=== PATIENT | male | born 1965 | race Caucasian/White ===

== ENCOUNTER 2022-08-12 02:16 | Outpatient (RCR) | payer OTHER, SELFPAY ==
[2022-08-12] MEDS: Normal Saline Flush 10 ML SYR IVP (08:29)
[2022-08-12 08:59] LABS: Abs Immature Grans 0.02 10^3/uL (0.0-0.06); Absolute Basophil Count 0.02 10^3/uL (0.0-0.2); Absolute Eosinophil Count 0.36 10^3/uL (0.0-0.7); Absolute Lymphocyte Count 1.01 10^3/uL (1.2-3.4); Absolute Monocyte Count 0.85 10^3/uL (0.1-0.8); Absolute Neutrophil Count 3.34 10^3/uL (1.2-6.7); Basophils % 0.4; Eosinophils % 6.4; HCT 25.4 % (40.0-50.0); HGB 8.3 g/dL (13.5-17.5); Immature Grans % 0.4; MCH 28.7 pg (27.0-33.0); MCHC 32.7 % (32.0-36.0); MCV 88 fL (80-95); MPV 9.9 fL (8.0-11.0); Monocytes % 15.2; Neutrophils % 59.6; Platelet Count 171 10^3/uL (130-400); RBC 2.89 10^6/uL (4.36-5.78); RDW 17.4 % (11.8-14.1); RDW-SD 55.7 fL
[2022-08-12 09:31] LABS: ALT 31 U/L (16-63); AST 56 U/L (15-37); Albumin 3.2 g/dL (3.4-5.0); Alkaline Phosphatase 421 U/L (46-116); Anion Gap 8.6 mmol/L (3-11); BUN 9 mg/dL (7-18); CO2 25.4 mmol/L (21.0-32.0); CREATININE 0.8 mg/dL (0.70-1.30); Calcium 8.4 mg/dL (8.5-10.1); Chloride 104 mmol/L (98-107); Estimated GFR 103.22 (mL/min/1.73m2); Glucose 103 mg/dL (74-106); Potassium 3.7 mmol/L (3.5-5.1); Sodium 138 mmol/L (136-145); Total Protein 7.2 g/dL (6.4-8.2)
[2022-08-14 10:33] LABS: CA 19-9 42 U/mL (<35)
== END 2022-08-15 23:59 | disposition home or self-care (01) ==
LOC: INF 02:16
PROVIDERS: PCP Nurse Practitioner Acute Care; Visit Provider Internal Medicine Hematology & Oncology
DX: C25.7 Malignant neoplasm of other parts of pancreas (principal); Z45.2 Encounter for adjustment and management of vascular access device
CPT/HCPCS: 36591; 80053; 85025; 86301

== ENCOUNTER 2022-09-11 00:53 | Outpatient (RCR) | payer OTHER, SELFPAY ==
[2022-08-26] MEDS: Normal Saline Flush 10 ML SYR IVP (08:56)
[2022-08-26 09:02] LABS: Abs Immature Grans 0.01 10^3/uL (0.0-0.06); Absolute Basophil Count 0.02 10^3/uL (0.0-0.2); Absolute Eosinophil Count 0.34 10^3/uL (0.0-0.7); Absolute Lymphocyte Count 0.86 10^3/uL (1.2-3.4); Absolute Monocyte Count 0.58 10^3/uL (0.1-0.8); Absolute Neutrophil Count 1.52 10^3/uL (1.2-6.7); Basophils % 0.6; Eosinophils % 10.2; HCT 24.5 % (40.0-50.0); Immature Grans % 0.3; Lymphocytes % 25.8; MCH 27.4 pg (27.0-33.0); MCHC 32.7 % (32.0-36.0); MCV 84 fL (80-95); MPV 9.7 fL (8.0-11.0); Monocytes % 17.4; Neutrophils % 45.7; Platelet Count 150 10^3/uL (130-400); RBC 2.92 10^6/uL (4.36-5.78); RDW 18.2 % (11.8-14.1); RDW-SD 55.6 fL; WBC 3.33 10^3/uL (4.4-10.8)
[2022-08-26 09:16] LABS: ALT 35 U/L (16-63); AST 42 U/L (15-37); Albumin 3.2 g/dL (3.4-5.0); Alkaline Phosphatase 355 U/L (46-116); Anion Gap 8.8 mmol/L (3-11); BUN 7 mg/dL (7-18); Bilirubin, Total 0.6 mg/dL (0.2-1.0); CO2 26.2 mmol/L (21.0-32.0); CREATININE 0.9 mg/dL (0.70-1.30); Calcium 6.8 mg/dL (8.5-10.1); Chloride 106 mmol/L (98-107); Estimated GFR 99.62 (mL/min/1.73m2); Glucose 85 mg/dL (74-106); Potassium 3.3 mmol/L (3.5-5.1); Sodium 141 mmol/L (136-145); Total Protein 6.9 g/dL (6.4-8.2)
[2022-08-26 09:34] LABS: Diff Comment Diff Reviewed; RBC Morphology Normal
[2022-08-26 11:35] LABS: Magnesium 0.6 mg/dL (1.8-2.4)
[2022-08-26 11:53] LABS: Vitamin D 25 Total 24.1 ng/mL (30-100)
[2022-08-28 11:27] LABS: CA 19-9 43 U/mL (<35)
[2022-08-28 14:26] LABS: ALT 42 U/L (16-63); AST 49 U/L (15-37); Albumin 3.3 g/dL (3.4-5.0); Alkaline Phosphatase 344 U/L (46-116); Anion Gap 8.6 mmol/L (3-11); BUN 13 mg/dL (7-18); Bilirubin, Total 0.6 mg/dL (0.2-1.0); CO2 24.4 mmol/L (21.0-32.0); CREATININE 0.9 mg/dL (0.70-1.30); Calcium 7.8 mg/dL (8.5-10.1); Chloride 103 mmol/L (98-107); Estimated GFR 99.62 (mL/min/1.73m2); Glucose 101 mg/dL (74-106); Sodium 136 mmol/L (136-145); Total Protein 7.2 g/dL (6.4-8.2)
[2022-08-28 15:52] LABS: Magnesium 1.5 mg/dL (1.8-2.4)
[2022-09-11] MEDS: Normal Saline Flush 10 ML SYR IVP (08:26)
[2022-09-11 08:46] LABS: Abs Immature Grans 0.01 10^3/uL (0.0-0.06); HCT 25.9 % (40.0-50.0); HGB 8.3 g/dL (13.5-17.5); MCH 26.6 pg (27.0-33.0); MCV 83 fL (80-95); MPV 10.3 fL (8.0-11.0); Platelet Count 153 10^3/uL (130-400); RBC 3.12 10^6/uL (4.36-5.78); RDW 18.7 % (11.8-14.1); WBC 2.61 10^3/uL (4.4-10.8)
[2022-09-11 09:02] LABS: ALT 72 U/L (16-63); AST 145 U/L (15-37); Albumin 3.2 g/dL (3.4-5.0); Alkaline Phosphatase 593 U/L (46-116); Anion Gap 11.7 mmol/L (3-11); BUN 8 mg/dL (7-18); Bilirubin, Total 0.4 mg/dL (0.2-1.0); CO2 23.3 mmol/L (21.0-32.0); CREATININE 0.9 mg/dL (0.70-1.30); Calcium 7.6 mg/dL (8.5-10.1); Chloride 104 mmol/L (98-107); Estimated GFR 99.62 (mL/min/1.73m2); Glucose 153 mg/dL (74-106); Potassium 3.3 mmol/L (3.5-5.1); Sodium 139 mmol/L (136-145)
[2022-09-11 09:22] LABS: Absolute Basophil Count 0.03 10^3/uL (0.0-0.2); Absolute Eosinophil Count 0.29 10^3/uL (0.0-0.7); Absolute Lymphocyte Count 1.25 10^3/uL (1.2-3.4); Absolute Monocyte Count 0.42 10^3/uL (0.1-0.8); Absolute Neutrophil Count 0.63 10^3/uL (1.2-6.7)
[2022-09-11 09:23] LABS: Anisocytosis 1+; Diff Comment Manual Differential; Hypochromasia 1+
[2022-09-11 10:43] LABS: Magnesium 0.5 mg/dL (1.8-2.4)
[2022-09-14 10:50] LABS: CA 19-9 48 U/mL (<35)
== END 2022-09-15 23:59 | disposition home or self-care (01) ==
LOC: INF 00:53
PROVIDERS: PCP Nurse Practitioner Acute Care; Visit Provider Internal Medicine Hematology & Oncology
DX: C25.7 Malignant neoplasm of other parts of pancreas (principal); Z45.2 Encounter for adjustment and management of vascular access device
CPT/HCPCS: 36591; 80053; 82306; 83735; 85025; 86301

== ENCOUNTER 2022-10-09 01:18 | Outpatient (RCR) | payer OTHER, SELFPAY ==
[2022-09-21] MEDS: Normal Saline Flush 10 ML SYR IVP (09:33)
[2022-09-21 09:43] LABS: Absolute Basophil Count 0.02 10^3/uL (0.0-0.2); Absolute Eosinophil Count 0.35 10^3/uL (0.0-0.7); Absolute Lymphocyte Count 1.67 10^3/uL (1.2-3.4); Absolute Monocyte Count 0.64 10^3/uL (0.1-0.8); Absolute Neutrophil Count 2.24 10^3/uL (1.2-6.7); Basophils % 0.4; HCT 27.6 % (40.0-50.0); HGB 8.9 g/dL (13.5-17.5); Lymphocytes % 33.3; MCH 25.6 pg (27.0-33.0); MCHC 32.2 % (32.0-36.0); MCV 79 fL (80-95); MPV 9.7 fL (8.0-11.0); Monocytes % 12.7; Neutrophils % 44.6; Platelet Count 241 10^3/uL (130-400); RBC 3.48 10^6/uL (4.36-5.78); RDW 19.4 % (11.8-14.1); RDW-SD 55.1 fL; WBC 5.02 10^3/uL (4.4-10.8)
[2022-09-21 10:23] LABS: ALT 47 U/L (16-63); AST 70 U/L (15-37); Albumin 3.5 g/dL (3.4-5.0); Alkaline Phosphatase 590 U/L (46-116); Anion Gap 13.7 mmol/L (3-11); BUN 6 mg/dL (7-18); Bilirubin, Total 0.4 mg/dL (0.2-1.0); CO2 21.3 mmol/L (21.0-32.0); CREATININE 0.9 mg/dL (0.70-1.30); Chloride 106 mmol/L (98-107); Estimated GFR 99.62 (mL/min/1.73m2); Glucose 130 mg/dL (74-106); Potassium 3.2 mmol/L (3.5-5.1); Sodium 141 mmol/L (136-145); Total Protein 7.4 g/dL (6.4-8.2)
[2022-09-21 10:46] LABS: Magnesium 0.9 mg/dL (1.8-2.4)
[2022-09-23 09:41] LABS: CA 19-9 46 U/mL (<35)
[2022-09-23 13:39] LABS: ALT 61 U/L (16-63); AST 73 U/L (15-37); Albumin 3.5 g/dL (3.4-5.0); Alkaline Phosphatase 623 U/L (46-116); Anion Gap 8.9 mmol/L (3-11); BUN 16 mg/dL (7-18); Bilirubin, Total 0.4 mg/dL (0.2-1.0); CO2 23.1 mmol/L (21.0-32.0); CREATININE 0.9 mg/dL (0.70-1.30); Calcium 8.5 mg/dL (8.5-10.1); Chloride 104 mmol/L (98-107); Estimated GFR 99.62 (mL/min/1.73m2); Glucose 103 mg/dL (74-106); Magnesium 1.9 mg/dL (1.8-2.4); Sodium 136 mmol/L (136-145); Total Protein 7.4 g/dL (6.4-8.2)
== END 2022-10-13 23:59 | disposition home or self-care (01) ==
LOC: INF 01:18
PROVIDERS: PCP Nurse Practitioner Acute Care; Visit Provider Internal Medicine Hematology & Oncology
DX: Z45.2 Encounter for adjustment and management of vascular access device (principal); C25.7 Malignant neoplasm of other parts of pancreas
CPT/HCPCS: 36415; 36591; 80053; 83735; 85025; 86301

== ENCOUNTER 2022-10-23 11:54 | Emergency (ER) | payer OTHER, SELFPAY ==
[2022-10-23] VITALS (63 sets, daily range): BP systolic 113–182; BP diastolic 55–104; PULSE 75–107; RESP 12–32; TEMP 38.4; O2SAT 90–100
[2022-10-23] MEDS: PIPERACILLIN/TAZO 4.5 GM in Normal Saline 100 ML IVPB ×2 (12:18→18:17)
[2022-10-23 12:43] LABS: Lactate 1.2 mmol/L (0.6-1.4)
[2022-10-23] MEDS: HYDROmorphone 2 MG/ML SYR 0.5 MG IVP (12:58)
[2022-10-23 12:59] LABS: Abs Immature Grans 0.07 10^3/uL (0.0-0.06); Absolute Basophil Count 0.03 10^3/uL (0.0-0.2); Absolute Lymphocyte Count 0.38 10^3/uL (1.2-3.4); Absolute Monocyte Count 0.51 10^3/uL (0.1-0.8); Absolute Neutrophil Count 9.12 10^3/uL (1.2-6.7); Basophils % 0.3; HCT 25.7 % (40.0-50.0); HGB 8.3 g/dL (13.5-17.5); Immature Grans % 0.7; Lymphocytes % 3.7; MCH 25.4 pg (27.0-33.0); MCHC 32.3 % (32.0-36.0); MCV 79 fL (80-95); MPV 10.2 fL (8.0-11.0); Neutrophils % 89.3; RBC 3.27 10^6/uL (4.36-5.78); RDW 25.2 % (11.8-14.1); RDW-SD 70.9 fL; WBC 10.21 10^3/uL (4.4-10.8)
[2022-10-23 13:09] LABS: ALT 167 U/L (16-63); AST 245 U/L (15-37); Albumin 3.2 g/dL (3.4-5.0); Anion Gap 12.5 mmol/L (3-11); BUN 10 mg/dL (7-18); Bilirubin, Total 3.8 mg/dL (0.2-1.0); CO2 20.5 mmol/L (21.0-32.0); Calcium 8.7 mg/dL (8.5-10.1); Chloride 105 mmol/L (98-107); Estimated GFR 87.78 (mL/min/1.73m2); Glucose 123 mg/dL (74-106); Potassium 3.9 mmol/L (3.5-5.1); Sodium 138 mmol/L (136-145)
[2022-10-23 13:10] LABS: Diff Comment Diff Reviewed; Platelet Count 204 10^3/uL (130-400)
[2022-10-23 13:11] LABS: Anisocytosis 3+; Hypochromasia 2+; Poikilocytes 2+
[2022-10-23 13:14] LABS: Alkaline Phosphatase 1046 U/L (46-116)
[2022-10-23 13:34] LABS: Source Nasal/Nares
[2022-10-23 13:48] LABS: Lipase 58 U/L (16-77)
[2022-10-23 14:08] LABS: COVID-19 PCR Negative (Negative)
--- NOTE | 2022-10-23 14:18 | ED.GENADUL_ITS ---
Discharge Plan Disposition Patient Disposition: Transfer-Acute Inpatient Care Specific Acute Inpt Facility: [facility] Condition: Stable Discharge Details Clinical Impression: Acute cholangitis, Hypomagnesemia, Anemia Primary Care Provider: JENNIFER DAVIES ED Provider: Marlon Shukla [place] Meds and New Rx's Prescriptions: No Action acetaminophen 500 mg Tablet 1,000 mg PO DAILY amoxicillin-pot clavulanate 875-125 mg tablet 1 tab PO BID Patient Comments: TAKE 1 TABLET BY MOUTH TWICE DAILY ascorbic acid (vitamin C) [Vitamin C] 500 mg Tablet 500 mg PO DAILY atorvastatin 80 mg Tablet 80 mg PO DAILY calcium acetate(phosphat bind) 667 mg Tablet 667 mg PO DIRECTED calcium carbonate-vitamin D3 600 mg-5 mcg (200 unit) Tablet 2 tab PO DAILY Rx Instructions: 600mg-10mcg ciprofloxacin HCl 500 mg tablet 500 mg PO BID Patient Comments: TAKE 1 TABLET BY MOUTH TWICE DAILY FOR 10 DAYS clobetasol 0.05 % Cream 1 applic TOPICAL BID cyanocobalamin (vitamin B-12) 500 mcg Tablet 500 mcg PO DAILY cyclobenzaprine 10 mg Tablet 10 mg PO DIRECTED diphenhydramine HCl 50 mg Tablet 50 mg PO HS PRN echinacea [Echinacea Herb] 380 mg Capsule 380 mg PO DAILY Ensure Active Clear Liquid 237 ml PO DAILY Rx Instructions: chocolate plus - lactose free lidocaine HCl [Xylocaine] 4 % (40 mg/mL) Solution 15 ml topical Q4H PRN Zenpep 25,000-79,000- 105,000 unit Capsule,Delayed Release(Dr/Ec) 1 - 2 cap PO TID Creon 24,000-76,000 -120,000 unit Capsule,Delayed Release(Dr/Ec) 1 - 2 cap PO TID losartan 100 mg Tablet 100 mg PO DAILY magnesium oxide [MagOx] 400 mg (241.3 mg magnesium) Tablet 400 mg PO DAILY melatonin 5 mg Tablet 20 mg PO HS metoprolol tartrate 25 mg Tablet 12.5 mg PO DIRECTED pantoprazole 20 mg Tablet,Delayed Release (Dr/Ec) 20 mg PO BID potassium chloride 20 mEq tablet,ER particles/crystals 20 meq PO DAILY Patient Comments: TAKE 1 TABLET BY MOUTH ONCE DAILY spironolactone 50 mg Tablet 50 mg PO DAILY thiamine HCl (vitamin B1) 100 mg Tablet 100 mg PO DAILY Medical Decision Making 1424--57-year-old male with history of pancreatic cancer, on chemotherapy, sent from cancer center with fever and chills. Patient has mid abdominal tenderness. Labs reviewed and no leukocytosis. Patient is anemic but seems to be at baseline. Mild anion gap acidosis. Magnesium is low at 1.3. Transaminitis noted. Total bilirubin 3.8. Patient is febrile and tachycardic. Concern for potential acute intra-abdominal surgical process and consider acute cholangitis. Plan to obtain CT of the abdomen pelvis. I will initiate broad-spectrum antibiotics with Zofran 4.5 g IV. Blood cultures were sent. Patient requesting analgesic. Dilaudid 0.5 mg IV ordered. 16:00 --CT the abdomen pelvis was interpreted by radiology:1. There are no priors for comparison. 2. Biliary stent with intra and extrahepatic biliary ductal dilatation. Pancreatic head abnormality suspicious for pancreatic carcinoma. 3. Colonic diverticulosis without evidence of a acute diverticulitis. 4. There is a question of a striated appearance of the kidneys bilaterally which may represent pyelonephritis. 5. Thickening of the wall of the stomach. This is nonspecific but a infectious or inflammatory gastritis cannot be excluded. I called [facility] [place] to follow-up on plan that has been discussed with Dr. Cuevas regarding potential need for ERCP. Awaiting callback. I spoke with Dr. Cuevas directly and he will be contacted and transfer center. 17:30 --patient receiving second dose of Zosyn as well as magnesium 1 g IV. Additional Dilaudid 1 mg ordered. Lab Data Lab results reviewed: Yes I reviewed the patient's lab results. Labs: 10/23/22 12:41 Blood Blood Culture - Pending 10/23/22 12:30 Blood Blood Culture - Pending Laboratory Tests Range/Units 10/23/22 10/23/22 10/23/22 12:28 12:28 12:28 WBC (4.4-10.8) 10^3/uL 10.21 RBC (4.36-5.78) 10^6/uL 3.27 L Hgb (13.5-17.5) g/dL 8.3 L Hct (40.0-50.0) % 25.7 L MCV (80-95) fL 79 L MCH (27.0-33.0) pg 25.4 L MCHC (32.0-36.0) % 32.3 RDW (11.8-14.1) % 25.2 H Plt Count (130-400) 10^3/uL 204 MPV (8.0-11.0) fL 10.2 Immature Gran % 0.7 Neutrophils % 89.3 Lymphocytes % 3.7 Monocytes % 5.0 Eosinophils % 1.0 Basophils % 0.3 Nucleated RBC % (0.0-0.3) % 0.0 Absolute Neutrophils (1.2-6.7) 10^3/uL 9.12 H Absolute Lymphocytes (1.2-3.4) 10^3/uL 0.38 L Absolute Monocytes (0.1-0.8) 10^3/uL 0.51 Absolute Eosinophils (0.0-0.7) 10^3/uL 0.10 Absolute Basophils (0.0-0.2) 10^3/uL 0.03 RBC Morphology See Below Hypochromasia 2+ Poikilocytosis 2+ Anisocytosis 3+ VBG Lactate (0.6-1.4) mmol/L 1.2 Sodium (136-145) mmol/L 138 Potassium (3.5-5.1) mmol/L 3.9 Chloride (98-107) mmol/L 105 Carbon Dioxide (21.0-32.0) mmol/L 20.5 L Anion Gap (3-11) mmol/L 12.5 H BUN (7-18) mg/dL 10 Creatinine (0.70-1.30) mg/dL 1.0 Est GFR (CKD-EPI 2020) (mL/min/1.73m2) 87.78 Glucose (74-106) mg/dL 123 H Calcium (8.5-10.1) mg/dL 8.7 Total Bilirubin (0.2-1.0) mg/dL 3.8 H AST (15-37) U/L 245 H ALT (16-63) U/L 167 H Alkaline Phosphatase (46-116) U/L 1046 H Total Protein (6.4-8.2) g/dL 7.0 Albumin (3.4-5.0) g/dL 3.2 L Lipase (16-77) U/L COVID-19 Source SARS-CoV-2 (PCR) (Negative) Range/Units 10/23/22 10/23/22 12:45 13:28 WBC (4.4-10.8) 10^3/uL RBC (4.36-5.78) 10^6/uL Hgb (13.5-17.5) g/dL Hct (40.0-50.0) % MCV (80-95) fL MCH (27.0-33.0) pg MCHC (32.0-36.0) % RDW (11.8-14.1) % Plt Count (130-400) 10^3/uL MPV (8.0-11.0) fL Immature Gran % Neutrophils % Lymphocytes % Monocytes % Eosinophils % Basophils % Nucleated RBC % (0.0-0.3) % Absolute Neutrophils (1.2-6.7) 10^3/uL Absolute Lymphocytes (1.2-3.4) 10^3/uL Absolute Monocytes (0.1-0.8) 10^3/uL Absolute Eosinophils (0.0-0.7) 10^3/uL Absolute Basophils (0.0-0.2) 10^3/uL RBC Morphology Hypochromasia Poikilocytosis Anisocytosis VBG Lactate (0.6-1.4) mmol/L Sodium (136-145) mmol/L Potassium (3.5-5.1) mmol/L Chloride (98-107) mmol/L Carbon Dioxide (21.0-32.0) mmol/L Anion Gap (3-11) mmol/L BUN (7-18) mg/dL Creatinine (0.70-1.30) mg/dL Est GFR (CKD-EPI 2020) (mL/min/1.73m2) Glucose (74-106) mg/dL Calcium (8.5-10.1) mg/dL Total Bilirubin (0.2-1.0) mg/dL AST (15-37) U/L ALT (16-63) U/L Alkaline Phosphatase (46-116) U/L Total Protein (6.4-8.2) g/dL Albumin (3.4-5.0) g/dL Lipase (16-77) U/L 58 COVID-19 Source Nasal/Nares SARS-CoV-2 (PCR) (Negative) Negative HPI General Mode of arrival: EMS . Date/Time Provider Initiated Documentation: 10/23/22 11:57 . Limitations to Documentation: no limitations . Information obtained by: EMS . HPI Narrative: 57-year-old male with history of pancreatic cancer, sent from the cancer center with new onset fever chills, rigor and in clinic today, concern for potential cholangitis or other severe infection. Patient notes he was feeling okay this morning and then developed nausea, he had some chest discomfort that radiated to his back which resolved. While he was [facility] for [facility] and receiving IV magnesium for treatment of hypomagnesemia, he started to have shaking chills. He continues to have diffuse achiness and abdominal discomfort. Patient has had increasing bilirubin recently and there was plan for ERCP to be performed at [facility]. Related Data Home Medications Medication Instructions Recorded Confirmed acetaminophen 500 mg tablet 1,000 mg PO DAILY 10/23/22 10/23/22 amoxicillin 875 mg-potassium 1 tab PO BID 10/23/22 10/23/22 clavulanate 125 mg tablet ascorbic acid (vitamin C) 500 mg 500 mg PO DAILY 10/23/22 10/23/22 tablet (Vitamin C) atorvastatin 80 mg tablet 80 mg PO DAILY 10/23/22 10/23/22 calcium acetate(phosphat bind) 667 667 mg PO DIRECTED 10/23/22 10/23/22 mg tablet calcium carbonate 600 mg-vitamin 2 tab PO DAILY 10/23/22 10/23/22 D3 5 mcg (200 unit) tablet ciprofloxacin HCl 500 mg tablet 500 mg PO BID 10/23/22 10/23/22 clobetasol 0.05 % topical cream 1 applic topical BID 10/23/22 10/23/22 cyanocobalamin (vitamin B-12) 500 500 mcg PO DAILY 10/23/22 10/23/22 mcg tablet cyclobenzaprine 10 mg tablet 10 mg PO DIRECTED 10/23/22 10/23/22 diphenhydramine HCl 50 mg tablet 50 mg PO HS PRN 10/23/22 10/23/22 echinacea 380 mg capsule 380 mg PO DAILY 10/23/22 10/23/22 food supplemt, lactose-reduced 237 ml PO DAILY 10/23/22 10/23/22 lidocaine HCl 4 % (40 mg/mL) 15 ml topical Q4H PRN 10/23/22 10/23/22 mucosal solution [id number] 1 - 2 cap PO TID 10/23/22 10/23/22 24,000-76,000-120,000 unit capsule,delayed rel (Creon) [id number] 1 - 2 cap PO TID 10/23/22 10/23/22 25,000-79,000-105,000 unit capsule,delayed rel (Zenpep) losartan 100 mg tablet 100 mg PO DAILY 10/23/22 10/23/22 magnesium oxide 400 mg (241.3 mg 400 mg PO DAILY 10/23/22 10/23/22 magnesium) tablet (MagOx) melatonin 5 mg tablet 20 mg PO HS 10/23/22 10/23/22 metoprolol tartrate 25 mg tablet 12.5 mg PO DIRECTED 10/23/22 10/23/22 pantoprazole 20 mg tablet,delayed 20 mg PO BID 10/23/22 10/23/22 release potassium chloride 20 mEq 20 meq PO DAILY 10/23/22 10/23/22 tablet,extended release(part/cryst) spironolactone 50 mg tablet 50 mg PO DAILY 10/23/22 10/23/22 thiamine HCl (vitamin B1) 100 mg 100 mg PO DAILY 10/23/22 10/23/22 tablet Allergies Allergy/AdvReac Type Severity Reaction Status Date / Time levetiracetam AdvReac Intermediate rash/hives Unverified 10/23/22 14:02 General Stated Complaint: Fever VIVIENNE: 2 Review of Systems All systems reviewed & are unremarkable except as noted in HPI and below Constitutional Constitutional: Reports body ache(s), Reports chills and Reports fever(s) Gastrointestinal Gastrointestinal: Reports abdominal pain PFSH All Active Problems (Updated 10/23/22 @ 17:34 by Marlon Shukla MD) Acute cholangitis (Acute) Hypomagnesemia (Acute) Anemia (Chronic) Pancreatic cancer (Acute) Social History Smoking risk assessment performed?: No Alcohol Intake: former Drug use: Never Substance use type: does not use Do you feel safe at home: Yes Do you feel safe in your relationship?: Yes Exam Const General: cooperative HENMT Mouth: moist mucous membranes Eyes Conjunctivae: normal conjunctivae Sclera: normal sclerae Neck Neck: trachea midline and supple Resp Auscultation: clear to auscultation bilaterally, no rales, no rhonchi and no wheezes Cardio Rate: regular rate and not tachycardic Rhythm: regular rhythm GI Palpation: soft, not firm, no guarding, no masses, not rigid and tender (mid abd) Auscultation: normal bowel sounds Skin General skin exam: jaundice Neuro General: patient alert, patient awake and tone normal Extrem General: no edema Psych Appearance: grossly normal Mental Status: mental status grossly normal Course Vital Signs Vital signs: Vital Signs Temperature 38.4 C H 10/23/22 11:55 Pulse 96 H 10/23/22 11:55 Respiratory Rate 21 10/23/22 11:55 Blood Pressure 182/75 H 10/23/22 11:55 Pulse Oximetry 99 10/23/22 11:55 Temperature 38.4 C H 10/23/22 11:55 Temperature Source Oral 10/23/22 11:55 Pulse 96 H 10/23/22 11:55 Respiratory Rate 21 10/23/22 11:55 Blood Pressure 182/75 H 10/23/22 11:55 Pulse Oximetry 99 10/23/22 11:55 Oxygen Delivery Method Room Air 10/23/22 11:55 Oxygen Flow Rate 0 10/23/22 11:55 Pain Level 7 10/23/22 11:55 Lab/Test Results Lab/Test Results: 10/23/22 12:41 Blood Blood Culture - Pending 10/23/22 12:30 Blood Blood Culture - Pending Laboratory Tests Range/Units 10/23/22 10/23/22 10/23/22 12:28 12:28 12:28 WBC (4.4-10.8) 10^3/uL 10.21 RBC (4.36-5.78) 10^6/uL 3.27 L Hgb (13.5-17.5) g/dL 8.3 L Hct (40.0-50.0) % 25.7 L MCV (80-95) fL 79 L MCH (27.0-33.0) pg 25.4 L MCHC (32.0-36.0) % 32.3 RDW (11.8-14.1) % 25.2 H Plt Count (130-400) 10^3/uL 204 MPV (8.0-11.0) fL 10.2 Immature Gran % 0.7 Neutrophils % 89.3 Lymphocytes % 3.7 Monocytes % 5.0 Eosinophils % 1.0 Basophils % 0.3 Nucleated RBC % (0.0-0.3) % 0.0 Absolute Neutrophils (1.2-6.7) 10^3/uL 9.12 H Absolute Lymphocytes (1.2-3.4) 10^3/uL 0.38 L Absolute Monocytes (0.1-0.8) 10^3/uL 0.51 Absolute Eosinophils (0.0-0.7) 10^3/uL 0.10 Absolute Basophils (0.0-0.2) 10^3/uL 0.03 RBC Morphology See Below Hypochromasia 2+ Poikilocytosis 2+ Anisocytosis 3+ VBG Lactate (0.6-1.4) mmol/L 1.2 Sodium (136-145) mmol/L 138 Potassium (3.5-5.1) mmol/L 3.9 Chloride (98-107) mmol/L 105 Carbon Dioxide (21.0-32.0) mmol/L 20.5 L Anion Gap (3-11) mmol/L 12.5 H BUN (7-18) mg/dL 10 Creatinine (0.70-1.30) mg/dL 1.0 Est GFR (CKD-EPI 2020) (mL/min/1.73m2) 87.78 Glucose (74-106) mg/dL 123 H Calcium (8.5-10.1) mg/dL 8.7 Total Bilirubin (0.2-1.0) mg/dL 3.8 H AST (15-37) U/L 245 H ALT (16-63) U/L 167 H Alkaline Phosphatase (46-116) U/L 1046 H Total Protein (6.4-8.2) g/dL 7.0 Albumin (3.4-5.0) g/dL 3.2 L Lipase (16-77) U/L COVID-19 Source SARS-CoV-2 (PCR) (Negative) Range/Units 10/23/22 10/23/22 12:45 13:28 WBC (4.4-10.8) 10^3/uL RBC (4.36-5.78) 10^6/uL Hgb (13.5-17.5) g/dL Hct (40.0-50.0) % MCV (80-95) fL MCH (27.0-33.0) pg MCHC (32.0-36.0) % RDW (11.8-14.1) % Plt Count (130-400) 10^3/uL MPV (8.0-11.0) fL Immature Gran % Neutrophils % Lymphocytes % Monocytes % Eosinophils % Basophils % Nucleated RBC % (0.0-0.3) % Absolute Neutrophils (1.2-6.7) 10^3/uL Absolute Lymphocytes (1.2-3.4) 10^3/uL Absolute Monocytes (0.1-0.8) 10^3/uL Absolute Eosinophils (0.0-0.7) 10^3/uL Absolute Basophils (0.0-0.2) 10^3/uL RBC Morphology Hypochromasia Poikilocytosis Anisocytosis VBG Lactate (0.6-1.4) mmol/L Sodium (136-145) mmol/L Potassium (3.5-5.1) mmol/L Chloride (98-107) mmol/L Carbon Dioxide (21.0-32.0) mmol/L Anion Gap (3-11) mmol/L BUN (7-18) mg/dL Creatinine (0.70-1.30) mg/dL Est GFR (CKD-EPI 2020) (mL/min/1.73m2) Glucose (74-106) mg/dL Calcium (8.5-10.1) mg/dL Total Bilirubin (0.2-1.0) mg/dL AST (15-37) U/L ALT (16-63) U/L Alkaline Phosphatase (46-116) U/L Total Protein (6.4-8.2) g/dL Albumin (3.4-5.0) g/dL Lipase (16-77) U/L 58 COVID-19 Source Nasal/Nares SARS-CoV-2 (PCR) (Negative) Negative
--- NOTE | 2022-10-23 14:25 | DI.CT_ITS ---
Exam(s) CT ABDOMEN PELVIS W EXAM: CT ABDOMEN PELVIS W CLINICAL HISTORY: abd pain, pancreatic ca, estefanía increasing, febrile TECHNIQUE: Imaging Protocol: Axial computed tomography images with coronal and sagittal reformatted images were created and reviewed CONTRAST MATERIAL: Intravenous: Omnipaque 350 Contrast volume:100 mL Oral: No COMPARISON: No exams were available for comparison FINDINGS: ABDOMEN: Lung Bases: Normal where visualized. Liver: Normal density. No measurable mass. 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 Gallbladder and Biliary Tract: There is a biliary stent and pneumobilia present. Intra and extrahepa tic biliary ductal dilatation is present. Pancreas: There are calcifications seen in the head of the pancreas. There is some atrophy of the ta il of the pancreas. There is fullness in calcifications seen in the head of the pancreas which may r epresent a pancreatic mass. Spleen: Normal. Adrenals: No masses seen. Kidneys: Normal size, contour and axis. No radiodense stones or obstructive uropathy. No masses seen. There is a mottled striated appearance of the kidneys which may represent pyelonephritis. Abdominal Aorta: Abdominal portion non-dilated. Atherosclerosis. Bowel: There is diverticulosis of the colon but no evidence of acute diverticulitis. There is diffus e thickening of the wall of the stomach. No evidence of appendicitis. Peritoneal Cavity: No ascites, collection or mesenteric inflammatory response. No free air. Lymph Nodes: Within normal limits. Bones: Within normal limits for the patient's age. Soft Tissues: Unremarkable. PELVIS: Bladder: Symmetric distention, no gross wall thickening. Reproductive Organs: Unremarkable as visualized. Lymph Nodes: Within normal limits. Bones: Within normal limits for the patient's age. IMPRESSION: 1. There are no priors for comparison. 2. Biliary stent with intra and extrahepatic biliary ductal dilatation. Pancreatic head abnormality s uspicious for pancreatic carcinoma. 3. Colonic diverticulosis without evidence of a acute diverticulitis. 4. There is a question of a striated appearance of the kidneys bilaterally which may represent pyelon ephritis. 5. Thickening of the wall of the stomach. This is nonspecific but a infectious or inflammatory gastri tis cannot be excluded. RADIATION DOSE DELIVERED: 754.89mGy.cm Total DLP DATA REPOSITORY: All CT scans at this facility are submitted to the National Radiology Data Registry (NRDR) Dose Index Registry (DIR) with the [employer] (ACR). RADIATION OPTIMIZATION: All CT scans at this facility use at least one of these dose optimization te chniques: automated exposure control; mA and/or kV adjustment per patient size (includes targeted exa ms where dose is matched to clinical indication); or iterative reconstruction.
[2022-10-23] MEDS: Omnipaque 350 MG/ML 100 ML BTL IJ (14:32)
[2022-10-23] MEDS: Normal Saline - Diluent 50 ML VIAL IJ (14:33)
[2022-10-23] MEDS: MAGNESIUM SULFATE 1 GM/100 ML BAG IVPB (18:18)
[2022-10-23] MEDS: HYDROmorphone 2 MG/ML SYR 1 MG IVP ×2 (18:18→21:33)
[2022-10-23 20:26] LABS: Magnesium 2.3 mg/dL (1.8-2.4)
[2022-10-24] VITALS (7 sets, daily range): BP systolic 159–160; BP diastolic 71–87; PULSE 105–108; RESP 15–27; TEMP 38.2; O2SAT 93–94
[2022-10-24] MEDS: HYDROmorphone 2 MG/ML SYR 1 MG IVP
[2022-10-24] MEDS: PIPERACILLIN/TAZO 4.5 GM in Normal Saline 100 ML IVPB (00:14)
[2022-10-24] MEDS: Acetaminophen 500 MG TAB 1000 MG PO (00:47)
--- NOTE | 2022-10-24 12:07 | NUR.NOTE ---
Addendum entered by Regi Sterling 10/28/22 16:19: 10/28/22 Faxed another blood culture result to [facility]. Addendum entered by Regi Sterling 10/26/22 14:48: 10/26/22 faxed final blood culture results to [facility]. Original Note: Faxed blood culture results to [facility] 10/24/22 @1207 Nursing Note:
== END 2022-10-24 00:34 | disposition short-term general hospital (02) ==
PROVIDERS: Emergency Medicine; Emergency Provider Student in an Organized Health Care Education/Training Program; PCP Nurse Practitioner Acute Care
DX: K83.09 Other cholangitis (principal); E83.42 Hypomagnesemia; D64.9 Anemia, unspecified; C25.9 Malignant neoplasm of pancreas, unspecified; R00.0 Tachycardia, unspecified
CPT/HCPCS: 36415; 80053; 83690; 87040; 87077; 87635; 96365; 96366; 96368; 96375; 96376; 99285; 74177; 83605; 83735; 85025; 87186; J1170; J2543; J3475; J3490

== ENCOUNTER 2022-11-08 00:42 | Outpatient (RCR) | payer OTHER, SELFPAY ==
[2022-10-16] MEDS: Normal Saline Flush 10 ML SYR IVP (08:08)
[2022-10-16 08:15] LABS: Abs Immature Grans 0.03 10^3/uL (0.0-0.06); Absolute Basophil Count 0.05 10^3/uL (0.0-0.2); Absolute Eosinophil Count 0.27 10^3/uL (0.0-0.7); Absolute Lymphocyte Count 0.74 10^3/uL (1.2-3.4); Absolute Monocyte Count 1.27 10^3/uL (0.1-0.8); Absolute Neutrophil Count 3.34 10^3/uL (1.2-6.7); Basophils % 0.9; Eosinophils % 4.7; HCT 24.9 % (40.0-50.0); Immature Grans % 0.5; MCH 25.8 pg (27.0-33.0); MCHC 32.1 % (32.0-36.0); MCV 80 fL (80-95); MPV 9.6 fL (8.0-11.0); Monocytes % 22.3; Neutrophils % 58.6; Platelet Count 185 10^3/uL (130-400); RDW 25.2 % (11.8-14.1)
[2022-10-16 08:23] LABS: Anisocytosis 2+; Diff Comment RBC Morph Reviewed
[2022-10-16 08:37] LABS: ALT 170 U/L (16-63); AST 213 U/L (15-37); Albumin 2.9 g/dL (3.4-5.0); Alkaline Phosphatase 646 U/L (46-116); Anion Gap 10.4 mmol/L (3-11); BUN 7 mg/dL (7-18); Bilirubin, Total 1.4 mg/dL (0.2-1.0); CO2 23.6 mmol/L (21.0-32.0); CREATININE 0.9 mg/dL (0.70-1.30); Calcium 8.1 mg/dL (8.5-10.1); Chloride 103 mmol/L (98-107); Estimated GFR 99.62 (mL/min/1.73m2); Glucose 147 mg/dL (74-106); Potassium 3.3 mmol/L (3.5-5.1); Sodium 137 mmol/L (136-145); Total Protein 6.6 g/dL (6.4-8.2)
[2022-10-19 11:24] LABS: CA 19-9 53 U/mL (<35)
[2022-10-23] MEDS: Normal Saline Flush 10 ML SYR IVP (07:05)
[2022-10-23 07:22] LABS: Abs Immature Grans 0.02 10^3/uL (0.0-0.06); Absolute Basophil Count 0.04 10^3/uL (0.0-0.2); Absolute Eosinophil Count 0.55 10^3/uL (0.0-0.7); Absolute Lymphocyte Count 1.25 10^3/uL (1.2-3.4); Absolute Monocyte Count 0.83 10^3/uL (0.1-0.8); Absolute Neutrophil Count 1.93 10^3/uL (1.2-6.7); Basophils % 0.9; Eosinophils % 11.9; HCT 23.7 % (40.0-50.0); Immature Grans % 0.4; Lymphocytes % 27.1; MCH 26.5 pg (27.0-33.0); MCHC 32.5 % (32.0-36.0); MCV 81 fL (80-95); MPV 9.7 fL (8.0-11.0); Neutrophils % 41.7; Platelet Count 174 10^3/uL (130-400); RBC 2.91 10^6/uL (4.36-5.78); RDW 25.9 % (11.8-14.1); WBC 4.62 10^3/uL (4.4-10.8)
[2022-10-23 07:43] LABS: ALT 145 U/L (16-63); AST 197 U/L (15-37); Alkaline Phosphatase 879 U/L (46-116); Anion Gap 11.4 mmol/L (3-11); BUN 9 mg/dL (7-18); CO2 22.6 mmol/L (21.0-32.0); CREATININE 1.1 mg/dL (0.70-1.30); Calcium 8.5 mg/dL (8.5-10.1); Chloride 106 mmol/L (98-107); Glucose 114 mg/dL (74-106); Magnesium 1.3 mg/dL (1.8-2.4); Potassium 4.1 mmol/L (3.5-5.1); Sodium 140 mmol/L (136-145); Total Protein 6.8 g/dL (6.4-8.2)
[2022-10-23 07:54] LABS: Anisocytosis 3+; Diff Comment Diff Reviewed; HGB 7.7 g/dL (13.5-17.5); Hypochromasia 2+
[2022-10-23 07:55] LABS: Poikilocytes 2+
[2022-10-26 09:19] LABS: CA 19-9 121 U/mL (<35)
[2022-11-06] MEDS: Normal Saline Flush 10 ML SYR IVP (07:58)
[2022-11-06 08:05] LABS: Abs Immature Grans 0.02 10^3/uL (0.0-0.06); Absolute Basophil Count 0.05 10^3/uL (0.0-0.2); Absolute Eosinophil Count 0.72 10^3/uL (0.0-0.7); Absolute Lymphocyte Count 1.16 10^3/uL (1.2-3.4); Absolute Neutrophil Count 3.79 10^3/uL (1.2-6.7); Basophils % 0.8; HCT 26.6 % (40.0-50.0); HGB 8.2 g/dL (13.5-17.5); Immature Grans % 0.3; Lymphocytes % 17.7; MCH 25.9 pg (27.0-33.0); MCHC 30.8 % (32.0-36.0); MCV 84 fL (80-95); MPV 9.3 fL (8.0-11.0); Monocytes % 12.2; Platelet Count 177 10^3/uL (130-400); RBC 3.17 10^6/uL (4.36-5.78); RDW-SD 67.1 fL; WBC 6.54 10^3/uL (4.4-10.8)
[2022-11-06 08:30] LABS: ALT 34 U/L (16-63); AST 37 U/L (15-37); Alkaline Phosphatase 475 U/L (46-116); Anion Gap 10.1 mmol/L (3-11); BUN 24 mg/dL (7-18); Bilirubin, Total 0.7 mg/dL (0.2-1.0); CO2 22.9 mmol/L (21.0-32.0); Calcium 8.8 mg/dL (8.5-10.1); Chloride 103 mmol/L (98-107); Estimated GFR 38.21 (mL/min/1.73m2); Glucose 117 mg/dL (74-106); Magnesium 1.2 mg/dL (1.8-2.4); Potassium 3.9 mmol/L (3.5-5.1); Sodium 136 mmol/L (136-145); Total Protein 7.1 g/dL (6.4-8.2)
[2022-11-06 08:44] LABS: Diff Comment Diff Reviewed
[2022-11-06 08:45] LABS: Anisocytosis 2+; Hypochromasia 1+; Poikilocytes 1+
[2022-11-08 14:32] VITALS: BP 125/70; PULSE 85; TEMP 37.2; O2SAT 99
[2022-11-08] MEDS: Heparin 500 UNITS/5 ML SYRINGE IV (14:37)
[2022-11-08] MEDS: Normal Saline Flush 10 ML SYR IVP (14:37)
[2022-11-09 10:11] LABS: CA 19-9 75 U/mL (<35)
== END 2022-11-13 23:59 | disposition home or self-care (01) ==
LOC: INF 00:42
PROVIDERS: PCP Nurse Practitioner Acute Care; Visit Provider Internal Medicine Hematology & Oncology
DX: Z45.2 Encounter for adjustment and management of vascular access device (principal); C25.7 Malignant neoplasm of other parts of pancreas; Z79.899 Other long term (current) drug therapy
CPT/HCPCS: 36591; 80053; 96523; 83735; 85025; 86301

== ENCOUNTER 2022-12-13 00:08 | Outpatient (RCR) | payer OTHER, SELFPAY ==
[2022-11-14 00:08] VITALS: BP 125/70; PULSE 85; TEMP 37.2
[2022-11-20 08:51] LABS: Abs Immature Grans 0.01 10^3/uL (0.0-0.06); Absolute Basophil Count 0.01 10^3/uL (0.0-0.2); Absolute Lymphocyte Count 1.01 10^3/uL (1.2-3.4); Absolute Neutrophil Count 1.98 10^3/uL (1.2-6.7); Basophils % 0.3; Eosinophils % 10.2; HCT 24.7 % (40.0-50.0); HGB 7.7 g/dL (13.5-17.5); Immature Grans % 0.3; Lymphocytes % 25.8; MCH 26.3 pg (27.0-33.0); MCHC 31.2 % (32.0-36.0); MCV 84 fL (80-95); Monocytes % 12.8; Neutrophils % 50.6; Platelet Count 115 10^3/uL (130-400); RBC 2.93 10^6/uL (4.36-5.78); RDW 19.9 % (11.8-14.1); RDW-SD 61.5 fL; WBC 3.92 10^3/uL (4.4-10.8)
[2022-11-20] MEDS: Normal Saline Flush 10 ML SYR IVP (08:53)
[2022-11-20 09:16] LABS: ALT 69 U/L (16-63); AST 60 U/L (15-37); Albumin 2.9 g/dL (3.4-5.0); Alkaline Phosphatase 352 U/L (46-116); Anion Gap 9.6 mmol/L (3-11); BUN 14 mg/dL (7-18); Bilirubin, Total 0.4 mg/dL (0.2-1.0); CO2 25.4 mmol/L (21.0-32.0); CREATININE 1.2 mg/dL (0.70-1.30); Calcium 7.8 mg/dL (8.5-10.1); Chloride 106 mmol/L (98-107); Estimated GFR 70.53 (mL/min/1.73m2); Glucose 121 mg/dL (74-106); Potassium 3.5 mmol/L (3.5-5.1); Sodium 141 mmol/L (136-145); Total Protein 6.5 g/dL (6.4-8.2)
[2022-11-20 09:33] LABS: Magnesium 0.9 mg/dL (1.8-2.4)
[2022-11-22] MEDS: Normal Saline Flush 10 ML SYR IVP (14:04)
[2022-11-22] MEDS: Heparin 500 UNITS/5 ML SYRINGE IV (14:04)
[2022-11-23 12:56] LABS: CA 19-9 89 U/mL (<35)
[2022-12-04 08:17] LABS: Abs Immature Grans 0.66 10^3/uL (0.0-0.06); Absolute Basophil Count 0.06 10^3/uL (0.0-0.2); Absolute Eosinophil Count 0.35 10^3/uL (0.0-0.7); Absolute Lymphocyte Count 1.63 10^3/uL (1.2-3.4); Absolute Monocyte Count 1.08 10^3/uL (0.1-0.8); Absolute Neutrophil Count 6.27 10^3/uL (1.2-6.7); Basophils % 0.6; Eosinophils % 3.5; HCT 27.4 % (40.0-50.0); HGB 8.7 g/dL (13.5-17.5); Immature Grans % 6.6; Lymphocytes % 16.2; MCH 26.4 pg (27.0-33.0); MCHC 31.8 % (32.0-36.0); MCV 83 fL (80-95); MPV 9.4 fL (8.0-11.0); Monocytes % 10.7; Neutrophils % 62.4; Platelet Count 110 10^3/uL (130-400); RBC 3.29 10^6/uL (4.36-5.78); RDW 18.8 % (11.8-14.1); RDW-SD 56.9 fL; WBC 10.05 10^3/uL (4.4-10.8)
[2022-12-04 08:31] LABS: ALT 38 U/L (16-63); AST 32 U/L (15-37); Albumin 3.1 g/dL (3.4-5.0); Alkaline Phosphatase 324 U/L (46-116); BUN 11 mg/dL (7-18); Bilirubin, Total 0.3 mg/dL (0.2-1.0); CREATININE 2.2 mg/dL (0.70-1.30); Calcium 7.2 mg/dL (8.5-10.1); Chloride 102 mmol/L (98-107); Estimated GFR 34.08 (mL/min/1.73m2); Glucose 117 mg/dL (74-106); Magnesium 0.8 mg/dL (1.8-2.4); Sodium 136 mmol/L (136-145); Total Protein 6.9 g/dL (6.4-8.2)
[2022-12-04 08:39] LABS: Diff Comment Diff Reviewed; RBC Morphology Normal
[2022-12-04] MEDS: Normal Saline Flush 10 ML SYR IVP (09:23)
[2022-12-07 09:33] LABS: CA 19-9 152 U/mL (<35)
[2022-12-11] MEDS: Normal Saline Flush 10 ML SYR IVP (08:13)
[2022-12-11 08:33] LABS: Abs Immature Grans 0.03 10^3/uL (0.0-0.06); Absolute Basophil Count 0.02 10^3/uL (0.0-0.2); Absolute Eosinophil Count 0.27 10^3/uL (0.0-0.7); Absolute Lymphocyte Count 1.18 10^3/uL (1.2-3.4); Absolute Monocyte Count 1.06 10^3/uL (0.1-0.8); Basophils % 0.4; Eosinophils % 5.2; HCT 28.5 % (40.0-50.0); HGB 8.9 g/dL (13.5-17.5); Immature Grans % 0.6; Lymphocytes % 22.9; MCH 26.3 pg (27.0-33.0); MCHC 31.2 % (32.0-36.0); MCV 84 fL (80-95); MPV 9.3 fL (8.0-11.0); Monocytes % 20.5; Neutrophils % 50.4; Platelet Count 188 10^3/uL (130-400); RBC 3.39 10^6/uL (4.36-5.78); RDW 18.6 % (11.8-14.1); RDW-SD 56.3 fL; WBC 5.16 10^3/uL (4.4-10.8)
[2022-12-11 08:50] LABS: ALT 39 U/L (16-63); AST 50 U/L (15-37); Albumin 3.2 g/dL (3.4-5.0); Alkaline Phosphatase 335 U/L (46-116); Anion Gap 8.8 mmol/L (3-11); BUN 10 mg/dL (7-18); Bilirubin, Total 0.3 mg/dL (0.2-1.0); CO2 24.2 mmol/L (21.0-32.0); Calcium 8.7 mg/dL (8.5-10.1); Chloride 104 mmol/L (98-107); Estimated GFR 87.78 (mL/min/1.73m2); Glucose 118 mg/dL (74-106); Sodium 137 mmol/L (136-145); Total Protein 7.2 g/dL (6.4-8.2)
[2022-12-11 09:24] LABS: Magnesium 1.3 mg/dL (1.8-2.4)
[2022-12-13] MEDS: Heparin 500 UNITS/5 ML SYRINGE IV (14:20)
[2022-12-13] MEDS: Normal Saline Flush 10 ML SYR IVP (14:20)
[2022-12-13 14:33] VITALS: BP 91/53; PULSE 70; RESP 20; TEMP 36.9; O2SAT 100
== END 2022-12-13 23:59 | disposition home or self-care (01) ==
LOC: INF 00:08
PROVIDERS: PCP Nurse Practitioner Acute Care; Visit Provider Internal Medicine Hematology & Oncology
DX: Z45.2 Encounter for adjustment and management of vascular access device (principal); C25.0 Malignant neoplasm of head of pancreas; Z79.899 Other long term (current) drug therapy; C25.7 Malignant neoplasm of other parts of pancreas
CPT/HCPCS: 36591; 80053; 96372; 96523; 83735; 85025; 86301; J3590

== ENCOUNTER 2023-01-10 00:23 | Outpatient (RCR) | payer OTHER, SELFPAY ==
[2022-12-14 00:04] VITALS: BP 91/53; PULSE 70; RESP 20; TEMP 36.9
[2022-12-25] MEDS: Normal Saline Flush 10 ML SYR IVP (08:39)
[2022-12-25 08:45] LABS: Abs Immature Grans 1.03 10^3/uL (0.0-0.06); HCT 26.1 % (40.0-50.0); HGB 8.4 g/dL (13.5-17.5); MCH 26.8 pg (27.0-33.0); MCHC 32.2 % (32.0-36.0); MCV 83 fL (80-95); MPV 9.5 fL (8.0-11.0); Platelet Count 133 10^3/uL (130-400); RBC 3.14 10^6/uL (4.36-5.78); RDW 18.5 % (11.8-14.1); RDW-SD 55.4 fL; WBC 12.17 10^3/uL (4.4-10.8)
[2022-12-25 08:57] LABS: ALT 52 U/L (16-63); AST 50 U/L (15-37); Albumin 3.2 g/dL (3.4-5.0); Alkaline Phosphatase 413 U/L (46-116); BUN 7 mg/dL (7-18); Bilirubin, Total 0.3 mg/dL (0.2-1.0); Calcium 7.9 mg/dL (8.5-10.1); Chloride 106 mmol/L (98-107); Estimated GFR 87.78 (mL/min/1.73m2); Glucose 130 mg/dL (74-106); Magnesium 0.9 mg/dL (1.8-2.4); Potassium 3.5 mmol/L (3.5-5.1); Sodium 138 mmol/L (136-145); Total Protein 6.9 g/dL (6.4-8.2)
[2022-12-25 09:07] LABS: Absolute Eosinophil Count 0.97 10^3/uL (0.0-0.7); Absolute Lymphocyte Count 1.46 10^3/uL (1.2-3.4); Absolute Monocyte Count 0.85 10^3/uL (0.1-0.8); Bands % 0; Diff Comment Manual Differential; Metamyelocytes % 2; Myelocytes % 2
[2022-12-25 09:08] LABS: RBC Morphology Normal
[2022-12-27] MEDS: Heparin 500 UNITS/5 ML SYRINGE IV (14:06)
[2022-12-27] MEDS: Normal Saline Flush 10 ML SYR IVP (14:07)
[2022-12-28 11:13] LABS: CA 19-9 172 U/mL (<35)
[2023-01-08] MEDS: Normal Saline Flush 10 ML SYR IVP (07:59)
[2023-01-08 08:25] LABS: Abs Immature Grans 1.74 10^3/uL (0.0-0.06); HCT 26.6 % (40.0-50.0); HGB 8.6 g/dL (13.5-17.5); MCH 26.7 pg (27.0-33.0); MCHC 32.3 % (32.0-36.0); MCV 83 fL (80-95); MPV 10.1 fL (8.0-11.0); Platelet Count 115 10^3/uL (130-400); RBC 3.22 10^6/uL (4.36-5.78); RDW-SD 53.8 fL; WBC 9.14 10^3/uL (4.4-10.8)
[2023-01-08 08:39] LABS: ALT 51 U/L (16-63); AST 50 U/L (15-37); Alkaline Phosphatase 408 U/L (46-116); Anion Gap 13.1 mmol/L (3-11); BUN 7 mg/dL (7-18); Bilirubin, Total 0.2 mg/dL (0.2-1.0); CO2 20.9 mmol/L (21.0-32.0); CREATININE 0.9 mg/dL (0.70-1.30); Calcium 6.7 mg/dL (8.5-10.1); Chloride 106 mmol/L (98-107); Estimated GFR 99.62 (mL/min/1.73m2); Glucose 134 mg/dL (74-106); Sodium 140 mmol/L (136-145); Total Protein 6.8 g/dL (6.4-8.2)
[2023-01-08 08:43] LABS: Magnesium 0.3 mg/dL (1.8-2.4); Potassium 2.6 mmol/L (3.5-5.1)
[2023-01-08 09:03] LABS: Absolute Eosinophil Count 0.09 10^3/uL (0.0-0.7); Absolute Lymphocyte Count 1.83 10^3/uL (1.2-3.4); Absolute Monocyte Count 0.91 10^3/uL (0.1-0.8); Absolute Neutrophil Count 5.48 10^3/uL (1.2-6.7); Atypical Lymphocytes % 1; Bands % 3; Diff Comment Manual Differential; Metamyelocytes % 5; Myelocytes % 4
[2023-01-08 09:04] LABS: Microcytosis 2+; Polychromasia Present
[2023-01-11 09:30] LABS: CA 19-9 115 U/mL (<35)
== END 2023-01-13 23:59 | disposition home or self-care (01) ==
LOC: INF 00:23
PROVIDERS: PCP Nurse Practitioner Acute Care; Visit Provider Internal Medicine Hematology & Oncology
DX: C25.0 Malignant neoplasm of head of pancreas (principal); Z79.899 Other long term (current) drug therapy; C25.7 Malignant neoplasm of other parts of pancreas
CPT/HCPCS: 36591; 80053; 96372; 96523; 83735; 85025; 86301; J3590

== ENCOUNTER 2023-01-22 07:35 | Outpatient (RCR) | payer OTHER, SELFPAY ==
[2023-01-14 00:13] VITALS: BP 91/53; PULSE 70; RESP 20; TEMP 36.9
[2023-01-22] MEDS: Normal Saline Flush 10 ML SYR IVP (07:44)
[2023-01-22 07:58] LABS: Abs Immature Grans 0.02 10^3/uL (0.0-0.06); Absolute Basophil Count 0.02 10^3/uL (0.0-0.2); Absolute Eosinophil Count 0.44 10^3/uL (0.0-0.7); Absolute Lymphocyte Count 1.01 10^3/uL (1.2-3.4); Absolute Monocyte Count 1.26 10^3/uL (0.1-0.8); Absolute Neutrophil Count 4.02 10^3/uL (1.2-6.7); Basophils % 0.3; Eosinophils % 6.5; HCT 25.6 % (40.0-50.0); Immature Grans % 0.3; Lymphocytes % 14.9; MCH 26.5 pg (27.0-33.0); MCHC 31.3 % (32.0-36.0); MCV 85 fL (80-95); MPV 9.9 fL (8.0-11.0); Monocytes % 18.6; Neutrophils % 59.4; Platelet Count 133 10^3/uL (130-400); RBC 3.02 10^6/uL (4.36-5.78); RDW 17.8 % (11.8-14.1); RDW-SD 55.1 fL; WBC 6.77 10^3/uL (4.4-10.8)
[2023-01-22 08:15] LABS: ALT 48 U/L (16-63); AST 80 U/L (15-37); Albumin 3.2 g/dL (3.4-5.0); Alkaline Phosphatase 425 U/L (46-116); Anion Gap 7.7 mmol/L (3-11); BUN 9 mg/dL (7-18); Bilirubin, Total 0.3 mg/dL (0.2-1.0); CO2 25.3 mmol/L (21.0-32.0); Calcium 8.1 mg/dL (8.5-10.1); Chloride 103 mmol/L (98-107); Estimated GFR 87.78 (mL/min/1.73m2); Glucose 121 mg/dL (74-106); Magnesium 1.1 mg/dL (1.8-2.4); Potassium 4.3 mmol/L (3.5-5.1); Sodium 136 mmol/L (136-145); Total Protein 6.9 g/dL (6.4-8.2)
[2023-01-25 11:59] LABS: CA 19-9 142 U/mL (<35)
== END 2023-02-12 23:59 | disposition home or self-care (01) ==
LOC: INF 07:35
PROVIDERS: PCP Nurse Practitioner Acute Care; Visit Provider Internal Medicine Hematology & Oncology
DX: Z45.2 Encounter for adjustment and management of vascular access device (principal); C25.0 Malignant neoplasm of head of pancreas; Z79.899 Other long term (current) drug therapy; C25.7 Malignant neoplasm of other parts of pancreas
CPT/HCPCS: 36591; 80053; 83735; 85025; 86301

== ENCOUNTER 2023-03-02 09:23 | Emergency (ER) | payer OTHER, SELFPAY ==
[2023-03-02] VITALS (30 sets, daily range): BP systolic 100–147; BP diastolic 59–79; PULSE 63–80; RESP 10–23; TEMP 36.6; O2SAT 85–100
--- NOTE | 2023-03-02 09:15 | RT.EKG_ITS ---
APPROVED REPORT Exam: Resting ECG Reason for Exam: chest pain Patient Location: E HR:81 bpm ECG Measurements Heart Rate 81 AXIS NM 120 P -41 QRSd 82 QRS 21 QT 378 T 44 QTc 438 Conclusion Sinus rhythm...normal P axis, V-rate 60- 99
--- NOTE | 2023-03-02 09:44 | DI.CT_ITS ---
Exam(s) CT CHEST PE ABD PELVIS W EXAM: CT CHEST PE ABD PELVIS W CLINICAL HISTORY: chest pain, sob, pancreatic ca. TECHNIQUE: Imaging Protocol: Axial CT angiography was performed with multi-slice acquisition and mu lti-planar and/or 3D reconstructions. CONTRAST MATERIAL: Intravenous: Omnipaque 350contrast volume:100 mL COMPARISON: CT CT ABDOMEN PELVIS W from 10/23/2022 FINDINGS: The examination is limited due to patient motion artifact. CHEST: Tracheobronchial tree: There is a 1.2 x 0.4 cm soft tissue nodule in the right mainstem bronchus. Pulmonary parenchyma: No consolidation or dominant measurable mass. No architectural distortion. Pulmonary Arteries: No evidence of filling defect to suggest pulmonary emboli. Mediastinum and Danyell: No dominant adenopathy or fluid collection. The esophagus is unremarkable. Visualized thyroid gland: Unremarkable. Pleura: No effusion or pneumothorax. Heart: The heart is not dilated. No coronary artery calcifications are seen. No pericardial effusion. Aorta: Thoracic aorta non-dilated. No evidence of dissection. Mild atherosclerosis. Bones: Within normal limits for the patient's age. Soft tissues: Unremarkable. Tubes, Catheters, and Lines: There is a right-sided port in place. ABDOMEN: Liver: There is now air-fluid level seen in the right lobe of the liver measuring 4.2 x 4.4 cm. This was not present on the prior examination. No measurable mass. Portal, Superior Mesenteric, and Splenic Veins: A discrete splenic vein is not seen. This may repres ent occlusion. Accessory vessels are seen adjacent to the spleen in the left upper quadrant. Gallbladder and Biliary Tract: Since the prior examination the patient has undergone a cholecystectom y. There is a biliary stent in the right lower quadrant. Stranding and inflammation is seen in the gallbladder bed. No focal fluid collection is seen in the gallbladder bed. Pneumobilia is seen. Th ere is again seen a biliary stent. Pancreas: The appearance of the pancreatic head is unremarkable. There is atrophy of the body and ta il of the pancreas. Spleen: There is decreased attenuation seen in the periphery of the spleen. Infarct versus mass. Th is was not present on the prior examination. Adrenals: No masses seen. Kidneys: Normal size, contour and axis. No radiodense stones or obstructive uropathy. No masses seen. Abdominal Aorta: Abdominal portion non-dilated. Atherosclerosis. Bowel: There is thickening of the wall of the distal stomach and duodenum. There is distension of th e proximal stomach. This may represent an infectious/inflammatory process or mass. The small bowel and colon are fluid-filled which can be seen with a diarrheal illness. No evidence of obstruction. No evidence of appendicitis. There are diverticula seen in the sigmoid colon without evidence of acu te diverticulitis. Peritoneal Cavity: There is a small amount of abdominal and pelvic free fluid. No free air. Lymph Nodes: There are mildly enlarged lymph nodes seen in the upper abdomen. Bones: Within normal limits for the patient's age. Soft Tissues: There is a small fat containing umbilical hernia. PELVIS: Bladder: Symmetric distention, no gross wall thickening. Reproductive Organs: Unremarkable as visualized. Lymph Nodes: Within normal limits. Bones: Within normal limits. IMPRESSION: 1. No evidence pulmonary embolism, thoracic aortic dissection or aneurysm. 2. Status post cholecystectomy with right upper quadrant biliary stent. 3. There is a new 4.4 x 4.2 cm air-fluid level in the liver. Differential considerations include abs cess or metastasis. 4. Stable appearance of the pancreatic head. Biliary stent is in place resulting in pneumobilia. 5. There is thickening of the wall of the distal stomach and proximal duodenum. This may represent a n infectious or inflammatory process. Neoplasm may also be considered. 6. Accessory vessels in the left upper quadrant and nonvisualization of the splenic vein which may re flect occlusion. Heterogeneous enhancement of the spleen is noted. Mass versus infarct. Splenomega ly. 7. Small amount of abdominal pelvic ascites. 8. Fluid seen in small and large bowel which can be seen with a diarrheal illness. 9. Findings were discussed with the emergency department on the date of the examination. RADIATION DOSE DELIVERED: 1,100.08mGy.cm Total DLP DATA REPOSITORY: All CT scans at this facility are submitted to the National Radiology Data Registry (NRDR) Dose Index Registry (DIR) with the [employer] (ACR). RADIATION OPTIMIZATION: All CT scans at this facility use at least one of these dose optimization te chniques: automated exposure control; mA and/or kV adjustment per patient size (includes targeted exa ms where dose is matched to clinical indication); or iterative reconstruction.
--- NOTE | 2023-03-02 09:53 | W.ED.GENAD ---
Discharge Plan Disposition Patient Disposition: Transfer-Acute Inpatient Care Specific Acute Inpt Facility: [facility] Discharge Details Clinical Impression: Abscess of liver, H/O pancreatic cancer Primary Care Provider: JENNIFER DAVIES ED Provider: Fausto Martinez Home Meds and New Rx's Prescriptions: Continued acetaminophen 500 mg Tablet 1,000 mg PO DAILY amoxicillin-pot clavulanate 875-125 mg tablet 1 tab PO BID Patient Comments: no longer taking ascorbic acid (vitamin C) [Vitamin C] 500 mg Tablet 500 mg PO DAILY atorvastatin 80 mg Tablet 80 mg PO DAILY calcium acetate(phosphat bind) 667 mg Tablet 667 mg PO DIRECTED calcium carbonate-vitamin D3 600 mg-5 mcg (200 unit) Tablet 2 tab PO DAILY Rx Instructions: 600mg-10mcg ciprofloxacin HCl 500 mg tablet 500 mg PO BID Patient Comments: took last dose this AM 03/02/23 clobetasol 0.05 % Cream 1 applic TOPICAL BID Patient Comments: no longer taking cyanocobalamin (vitamin B-12) 500 mcg Tablet 500 mcg PO DAILY cyclobenzaprine 10 mg Tablet 10 mg PO DIRECTED diphenhydramine HCl 50 mg Tablet 50 mg PO HS PRN echinacea 380 mg Capsule 380 mg PO DAILY Patient Comments: no longer taking food supplemt, lactose-reduced Liquid 237 ml PO DAILY Rx Instructions: chocolate plus - lactose free lidocaine HCl 4 % (40 mg/mL) Solution 15 ml topical Q4H PRN Patient Comments: no longer taking Zenpep 25,000-79,000- 105,000 unit Capsule,Delayed Release(Dr/Ec) 1 - 2 cap PO TID Patient Comments: no longer taking Creon 24,000-76,000 -120,000 unit Capsule,Delayed Release(Dr/Ec) 1 - 2 cap PO TID Patient Comments: no longer taking losartan 100 mg Tablet 100 mg PO DAILY Patient Comments: no longer taking magnesium oxide [MagOx] 400 mg (241.3 mg magnesium) Tablet 400 mg PO DAILY melatonin 5 mg Tablet 20 mg PO HS metoprolol tartrate 25 mg Tablet 12.5 mg PO DIRECTED pantoprazole 20 mg Tablet,Delayed Release (Dr/Ec) 20 mg PO BID potassium chloride 20 mEq tablet,ER particles/crystals 20 meq PO DAILY Patient Comments: TAKE 1 TABLET BY MOUTH ONCE DAILY spironolactone 50 mg Tablet 50 mg PO DAILY Patient Comments: no longer taking thiamine HCl (vitamin B1) 100 mg Tablet 100 mg PO DAILY Discharge Data Discharge Date/Time-TO BE ENTERED AT DEPARTURE: 03/02/23 18:41 Medical Decision Making 57-year-old male with history of pancreatic cancer and recent cholecystectomy and biliary stent placement presents with report of epigastric pain, nausea, vomiting, air-fluid level on liver on CT and possible infarcted spleen per Dr. Lowry, radiology Case discussed Dr. Wolff, surgery at [facility], recommends medicine conversation with the IR admission Labs reviewed, alk phos 845, improving, T. bili 2.1, persistent, anemia has improved, 7.7 for hemoglobin now up to 8.4 Patient feeling symptomatically improved, vitals stable Lactate 0.[address] Delaney hospitalist at [facility], she is excepted the patient to her service and will likely need interventional radiology Patient is stable for transfer at this time Patient is afebrile and nontoxic at time of reassessment He is still endorsing discomfort, he is no longer nauseous, he is received 2 L of IV fluids I will start antibiotics at the discretion of [facility], will likely initiate Zosyn at their discretion, blood cultures have been obtained, will single set from port and from peripheral source There has been no active emesis throughout this encounter HPI General Date/Time Provider Initiated Documentation: 03/02/23 09:25. HPI Narrative: This 57-year-old male presents with chest tightness, vomiting, myalgias which started last night. States that he has pancreatic cancer, last chemo was 1 week prior to arrival and recent biliary stent secondary to acute cholecystitis was placed on February 15 probation. States that he is scheduled for blood transfusion which was scheduled for today but he felt too nauseous to go to the infusion center is why he comes here. He states that both the chest discomfort and nausea with vomiting came on simultaneously. Denies any medications. Related Data Home Medications Medication Instructions Recorded Confirmed acetaminophen 500 mg tablet 1,000 mg PO DAILY 10/23/22 03/02/23 amoxicillin 875 mg-potassium 1 tab PO BID 10/23/22 10/23/22 clavulanate 125 mg tablet ascorbic acid (vitamin C) 500 mg 500 mg PO DAILY 10/23/22 03/02/23 tablet (Vitamin C) atorvastatin 80 mg tablet 80 mg PO DAILY 10/23/22 03/02/23 calcium acetate(phosphat bind) 667 667 mg PO DIRECTED 10/23/22 03/02/23 mg tablet calcium carbonate 600 mg-vitamin 2 tab PO DAILY 10/23/22 03/02/23 D3 5 mcg (200 unit) tablet ciprofloxacin HCl 500 mg tablet 500 mg PO BID 10/23/22 03/02/23 clobetasol 0.05 % topical cream 1 applic topical BID 10/23/22 10/23/22 cyanocobalamin (vitamin B-12) 500 500 mcg PO DAILY 10/23/22 03/02/23 mcg tablet cyclobenzaprine 10 mg tablet 10 mg PO DIRECTED 10/23/22 03/02/23 diphenhydramine HCl 50 mg tablet 50 mg PO HS PRN 10/23/22 03/02/23 echinacea 380 mg capsule 380 mg PO DAILY 10/23/22 10/23/22 food supplemt, lactose-reduced 237 ml PO DAILY 10/23/22 03/02/23 lidocaine HCl 4 % (40 mg/mL) 15 ml topical Q4H PRN 10/23/22 10/23/22 mucosal solution [id number] 1 - 2 cap PO TID 10/23/22 10/23/22 24,000-76,000-120,000 unit capsule,delayed rel (Creon) [id number]-[id number]-lojpqua 1 - 2 cap PO TID 10/23/22 10/23/22 25,000-79,000-105,000 unit capsule,delayed rel (Zenpep) losartan 100 mg tablet 100 mg PO DAILY 10/23/22 10/23/22 magnesium oxide 400 mg (241.3 mg 400 mg PO DAILY 10/23/22 03/02/23 magnesium) tablet (MagOx) melatonin 5 mg tablet 20 mg PO HS 10/23/22 03/02/23 metoprolol tartrate 25 mg tablet 12.5 mg PO DIRECTED 10/23/22 03/02/23 pantoprazole 20 mg tablet,delayed 20 mg PO BID 10/23/22 03/02/23 release potassium chloride 20 mEq 20 meq PO DAILY 10/23/22 03/02/23 tablet,extended release(part/cryst) spironolactone 50 mg tablet 50 mg PO DAILY 10/23/22 10/23/22 thiamine HCl (vitamin B1) 100 mg 100 mg PO DAILY 10/23/22 03/02/23 tablet Allergies Allergy/AdvReac Type Severity Reaction Status Date / Time levetiracetam AdvReac Intermediate rash/hives Unverified 03/02/23 09:32 General Stated Complaint: [facility] VIVIENNE: 3 PFSH All Active Problems (Updated 03/03/23 @ 15:46 by ODALIS Ruvalcaba) Abscess of liver (Acute) H/O pancreatic cancer (Acute) Pancreatic cancer (Acute) Social History Smoking risk assessment performed?: No Alcohol Intake: former Drug use: Never Substance use type: does not use Do you feel safe at home: Yes Do you feel safe in your relationship?: Yes Course Vital Signs Vital signs: Vital Signs Pulse 80 03/02/23 09:26 Respiratory Rate 16 03/02/23 09:26 Blood Pressure 116/79 03/02/23 09:26 Pulse Oximetry 96 03/02/23 09:26 Pulse 80 03/02/23 09:26 Respiratory Rate 16 03/02/23 09:26 Blood Pressure 116/79 03/02/23 09:26 Blood Pressure Position Supine 03/02/23 09:26 Pulse Oximetry 96 03/02/23 09:26 Oxygen Delivery Method Room Air 03/02/23 09:26 Oxygen Flow Rate 0 03/02/23 09:26 Pain Level 8 03/02/23 09:26 Sign Out Sign Out Data: Sign Out Comment: pending tx to [facility], liver mass Last updated by Tere Thomson PA at 03/02/23 16:06
[2023-03-02 10:06] LABS: Abs Immature Grans 0.04 10^3/uL (0.0-0.06); Absolute Basophil Count 0.01 10^3/uL (0.0-0.2); Absolute Eosinophil Count 0.08 10^3/uL (0.0-0.7); Absolute Lymphocyte Count 0.45 10^3/uL (1.2-3.4); Absolute Monocyte Count 0.74 10^3/uL (0.1-0.8); Absolute Neutrophil Count 5.85 10^3/uL (1.2-6.7); Basophils % 0.1; Eosinophils % 1.1; HCT 24.9 % (40.0-50.0); HGB 8.4 g/dL (13.5-17.5); Immature Grans % 0.6; Lymphocytes % 6.3; MCH 27.5 pg (27.0-33.0); MCHC 33.7 % (32.0-36.0); MCV 81 fL (80-95); MPV 10.6 fL (8.0-11.0); Monocytes % 10.3; Neutrophils % 81.6; Platelet Count 173 10^3/uL (130-400); RBC 3.06 10^6/uL (4.36-5.78); RDW 23.8 % (11.8-14.1); RDW-SD 67.6 fL; WBC 7.17 10^3/uL (4.4-10.8)
[2023-03-02] MEDS: Lactated Ringers 1,000 ML 1000 ML IV (10:18)
[2023-03-02] MEDS: MORPHine 4 MG/ML SYR IVP ×2 (10:18→16:12)
[2023-03-02] MEDS: Prochlorperazine 10 MG/2 ML VIAL 5 MG IVP (10:20)
[2023-03-02] MEDS: Normal Saline-STERILE FIELD 0.9% 10 ML SYR (10:20)
[2023-03-02 10:24] LABS: Creatine Kinase 20 U/L (39-308)
[2023-03-02 10:26] LABS: Anisocytosis 3+; Diff Comment Diff Reviewed; Hypochromasia 1+; Poikilocytes 1+
[2023-03-02 10:27] LABS: ALT 28 U/L (16-63); AST 48 U/L (15-37); Albumin 2.3 g/dL (3.4-5.0); Alkaline Phosphatase 842 U/L (46-116); Anion Gap 5.5 mmol/L (3-11); BUN 7 mg/dL (7-18); Bilirubin, Total 2.1 mg/dL (0.2-1.0); CO2 27.5 mmol/L (21.0-32.0); CREATININE 0.7 mg/dL (0.70-1.30); Calcium 8.7 mg/dL (8.5-10.1); Chloride 101 mmol/L (98-107); Estimated GFR 107.47 (mL/min/1.73m2); Glucose 137 mg/dL (74-106); Lipase 10 U/L (16-77); Potassium 3.5 mmol/L (3.5-5.1); Sodium 134 mmol/L (136-145); Total Protein 7.1 g/dL (6.4-8.2); Troponin I < 50 ng/L (<or=60)
--- NOTE | 2023-03-02 10:58 | NUR.NOTE ---
Per patient, implanted port is a Power Port.
[2023-03-02] MEDS: Omnipaque 350 MG/ML 500 ML BTL-Imaging package IJ (11:26)
[2023-03-02] MEDS: Normal Saline Flush 10 ML SYR IVP (11:26)
[2023-03-02] MEDS: Normal Saline - Diluent 50 ML VIAL IJ (11:26)
[2023-03-02 13:15] LABS: Troponin I < 50 ng/L (<or=60)
[2023-03-02 13:29] LABS: Lactate 0.7 mmol/L (0.6-1.4)
[2023-03-02] MEDS: PIPERACILLIN/TAZO 3.375 GM in Normal Saline 50 ML IVPB (16:27)
[2023-03-02] MEDS: Normal Saline 1,000 ML 200 ML IV (16:30)
== END 2023-03-02 18:41 | disposition short-term general hospital (02) ==
PROVIDERS: Physician Assistant; Emergency Provider Student in an Organized Health Care Education/Training Program; PCP Nurse Practitioner Acute Care
DX: R07.89 Other chest pain (principal); K75.0 Abscess of liver; R11.2 Nausea with vomiting, unspecified; R10.13 Epigastric pain; C25.9 Malignant neoplasm of pancreas, unspecified; Z90.49 Acquired absence of other specified parts of digestive tract; Z96.0 Presence of urogenital implants; Z92.21 Personal history of antineoplastic chemotherapy
CPT/HCPCS: 36415; 71275; 74177; 80053; 82550; 83690; 86850; 86900; 86901; 87040; 93005; 96365; 96367; 96368; 99285; 83605; 84484; 85025; 93010; 99284; J0780; J2270; J2543

== ENCOUNTER 2023-03-12 01:10 | Outpatient (RCR) | payer OTHER, SELFPAY ==
[2023-02-13 00:06] VITALS: BP 91/53; PULSE 70; RESP 20; TEMP 36.9
[2023-02-26] MEDS: Normal Saline Flush 10 ML SYR IVP (13:32)
[2023-02-26] MEDS: Heparin 500 UNITS/5 ML SYRINGE IV (13:33)
[2023-02-26 13:48] LABS: Abs Immature Grans 0.03 10^3/uL (0.0-0.06); Absolute Basophil Count 0.03 10^3/uL (0.0-0.2); Absolute Lymphocyte Count 0.52 10^3/uL (1.2-3.4); Absolute Monocyte Count 0.83 10^3/uL (0.1-0.8); Absolute Neutrophil Count 4.34 10^3/uL (1.2-6.7); Basophils % 0.5; Eosinophils % 1.7; HCT 23.3 % (40.0-50.0); HGB 7.7 g/dL (13.5-17.5); Immature Grans % 0.5; Lymphocytes % 8.9; MCH 27.5 pg (27.0-33.0); MCV 83 fL (80-95); MPV 10.4 fL (8.0-11.0); Monocytes % 14.2; Neutrophils % 74.2; Platelet Count 155 10^3/uL (130-400); RDW 22.3 % (11.8-14.1); RDW-SD 66.8 fL; WBC 5.85 10^3/uL (4.4-10.8)
[2023-02-26 13:57] LABS: ALT 46 U/L (16-63); AST 95 U/L (15-37); Albumin 2.1 g/dL (3.4-5.0); Alkaline Phosphatase 900 U/L (46-116); Anion Gap 9.1 mmol/L (3-11); BUN 8 mg/dL (7-18); Bilirubin, Total 1.9 mg/dL (0.2-1.0); CO2 22.9 mmol/L (21.0-32.0); CREATININE 0.8 mg/dL (0.70-1.30); Calcium 7.7 mg/dL (8.5-10.1); Chloride 101 mmol/L (98-107); Estimated GFR 103.22 (mL/min/1.73m2); Glucose 162 mg/dL (74-106); Potassium 3.5 mmol/L (3.5-5.1); Sodium 133 mmol/L (136-145); Total Protein 6.7 g/dL (6.4-8.2)
[2023-02-26 14:09] LABS: Anisocytosis 2+; Diff Comment RBC Morph Reviewed
[2023-02-26 15:53] LABS: Iron 25 ug/dL (65-175); Total Iron Binding Capacity 224 ug/dL (250-450); Transferrin Sat 11 % (20-55)
[2023-02-26 16:20] LABS: Ferritin 274 ng/mL (26-388); Folate > 20.0 ng/mL (8.6-20.0); Magnesium 0.9 mg/dL (1.8-2.4); Vitamin B12 1811 pg/mL (193-986)
[2023-03-01 12:54] LABS: CA 19-9 228 U/mL (<35)
[2023-03-12] MEDS: Normal Saline Flush 10 ML SYR IVP (08:05)
[2023-03-12 09:15] LABS: Abs Immature Grans 0.03 10^3/uL (0.0-0.06); Absolute Basophil Count 0.03 10^3/uL (0.0-0.2); Absolute Eosinophil Count 0.34 10^3/uL (0.0-0.7); Absolute Lymphocyte Count 0.81 10^3/uL (1.2-3.4); Absolute Monocyte Count 0.86 10^3/uL (0.1-0.8); Absolute Neutrophil Count 3.85 10^3/uL (1.2-6.7); Basophils % 0.5; Eosinophils % 5.7; HCT 28.1 % (40.0-50.0); Immature Grans % 0.5; Lymphocytes % 13.7; MCH 28.1 pg (27.0-33.0); MCV 88 fL (80-95); MPV 11.4 fL (8.0-11.0); Monocytes % 14.5; Neutrophils % 65.1; Platelet Count 175 10^3/uL (130-400); RDW 21.6 % (11.8-14.1); WBC 5.92 10^3/uL (4.4-10.8)
[2023-03-12 09:22] LABS: ALT 22 U/L (16-63); AST 53 U/L (15-37); Albumin 2.4 g/dL (3.4-5.0); Alkaline Phosphatase 895 U/L (46-116); Anion Gap 8.7 mmol/L (3-11); BUN 5 mg/dL (7-18); Bilirubin, Total 1.1 mg/dL (0.2-1.0); CO2 25.3 mmol/L (21.0-32.0); CREATININE 0.7 mg/dL (0.70-1.30); Calcium 8.2 mg/dL (8.5-10.1); Chloride 102 mmol/L (98-107); Estimated GFR 107.47 (mL/min/1.73m2); Glucose 115 mg/dL (74-106); Magnesium 1.4 mg/dL (1.8-2.4); Potassium 3.9 mmol/L (3.5-5.1); Sodium 136 mmol/L (136-145); Total Protein 6.9 g/dL (6.4-8.2)
[2023-03-12 12:16] VITALS: BP 91/53; PULSE 70; RESP 20; TEMP 36.9
== END 2023-03-15 23:59 | disposition home or self-care (01) ==
LOC: INF 01:10
PROVIDERS: Nurse Practitioner Family; PCP Nurse Practitioner Acute Care; Visit Provider Internal Medicine Hematology & Oncology
DX: Z45.2 Encounter for adjustment and management of vascular access device (principal); C25.7 Malignant neoplasm of other parts of pancreas; D64.9 Anemia, unspecified
CPT/HCPCS: 36591; 80053; 82607; 82728; 82746; 83540; 83550; 83735; 85025; 86301

== ENCOUNTER 2023-06-25 18:48 | Outpatient (CLI) | payer OTHER, SELFPAY ==
[2023-06-25 15:42] LABS: Abs Immature Grans 0.03 10^3/uL (0.0-0.06); Absolute Basophil Count 0.06 10^3/uL (0.0-0.2); Absolute Eosinophil Count 0.35 10^3/uL (0.0-0.7); Absolute Monocyte Count 0.72 10^3/uL (0.1-0.8); Absolute Neutrophil Count 4.89 10^3/uL (1.2-6.7); Basophils % 0.9; HCT 24.1 % (40.0-50.0); HGB 7.8 g/dL (13.5-17.5); Immature Grans % 0.4; Lymphocytes % 14.2; MCH 28.3 pg (27.0-33.0); MCHC 32.4 % (32.0-36.0); MCV 87 fL (80-95); MPV 9.6 fL (8.0-11.0); Monocytes % 10.2; Neutrophils % 69.3; Platelet Count 143 10^3/uL (130-400); RBC 2.76 10^6/uL (4.36-5.78); RDW 18.3 % (11.8-14.1); RDW-SD 57.9 fL; WBC 7.05 10^3/uL (4.4-10.8)
[2023-06-25 15:55] LABS: ALT 16 U/L (16-63); AST 16 U/L (15-37); Albumin 2.5 g/dL (3.4-5.0); Alkaline Phosphatase 671 U/L (46-116); Anion Gap 6.8 mmol/L (3-11); BUN 9 mg/dL (7-18); Bilirubin, Total 0.7 mg/dL (0.2-1.0); CO2 20.2 mmol/L (21.0-32.0); CREATININE 0.7 mg/dL (0.70-1.30); Calcium 8.3 mg/dL (8.5-10.1); Chloride 96 mmol/L (98-107); Estimated GFR 107.47 (mL/min/1.73m2); Glucose 116 mg/dL (74-106); Potassium 4.8 mmol/L (3.5-5.1); Total Protein 6.7 g/dL (6.4-8.2)
[2023-06-25 16:02] LABS: Sodium 123 mmol/L (136-145)
== END 2023-06-25 18:49 | disposition home or self-care (01) ==
LOC: LBO 18:53
PROVIDERS: PCP Internal Medicine; Visit Provider Internal Medicine Hematology & Oncology
DX: C25.0 Malignant neoplasm of head of pancreas (principal)
CPT/HCPCS: 36415; 80053; 83735; 85025